=== PATIENT | female | born 1945 | race Caucasian/White ===

== ENCOUNTER 2024-09-10 10:55 | Outpatient (AMB) | payer MEDICARE, SELFPAY ==
--- NOTE | 2024-09-10 11:04 | A.OFFPC_ITS ---
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: No Is last menstrual period known: No Post menopausal: No Patient : No Allergies No Known Allergies Allergy (Verified 09/10/24 11:11) Tobacco use date assessed: 09/10/24 Fall risk assessment: No Falls in past year Last assessed Fall Risk: 09/10/24 Dental Screening Dental Screen Date: 09/10/24 Did you have a dental visit in the last 12 months?: Yes Did you have a dental problem in the last 6 months where you did not have access to dental care?: Yes Was dental information given to patient?: Yes HPI HPI Comments History of Present Illness Details This is a 79-year-old female with a past medical history of cognitive decline, hypothyroidism, breast cancer, hypertension and hypothyroidism presenting to [facility]. She transferred from [facility]. We have not received records. Cognitive decline-memory loss over the past 1-2 years. No longer drives. ADLs not impacted otherwise. They do not feel like this has progressed quickly. Patient was started on benazepril by her last primary care provider. Patient has not seen neuro or had a neuropsych evaluation. When I asked her about sleep she says that she does sleep 6-8 hours nightly, but she snores heavily and she endorses daytime fatigue and somnolence. She is obese with a BMI of 31.6. She has hypertension. Hypertension treated with amlodipine 10 mg daily. Blood pressure 135/66 when I rechecked it. She was anxious to come in for a new appointment. No chest pain, shortness of breath or history of heart attack or stroke. Patient is a nonsmoker. She drinks champagne a couple of nights per week. History of breast cancer-followed by [facility] breast surgery. She has mammograms annually. These were done at [facility]. She had left breast cancer some 15 years ago treated with surgery and radiation. She had right breast cancer 2 years ago which was treated with surgery only. Hypothyroidism treated with levothyroxine 100 mcg daily. Patient is on higher than standard dosages of B12 and vitamin-D. No recent labs. ROS: Constitutional: No unexplained weight loss, fever, chills or night sweats. Eyes: No vision changes, blurry vision, double vision, eye pain, eye redness, eye discharge. ENT: No hearing loss, sneezing, congestion, runny nose or sore throat. Respiratory: No shortness of breath, cough or sputum production. Cardiovascular: No chest pain, chest pressure or chest discomfort. No palpitations or pedal edema. Gastrointestinal: No anorexia, nausea, vomiting or diarrhea. No abdominal pain or blood in stool. Genitourinary: No dysuria, hematuria, urinary frequency. Neurologic: No headache, dizziness, syncope, unilateral weakness, ataxia, numbness or tingling in the extremities.. Hematologic/Lymphatics: No bleeding or bruising. Skin: No rash or itching. Endocrine: No cold or heat intolerance. No polyuria or polydipsia. Psychiatric: No depression or anxiety. No SI/HI. Physical exam: Constitutional: Alert, in no distress. Head: Normocephalic. Eyes: Pupils are equal, round and reactive to light. Extraocular muscles intact. Ear, Nose and Throat: Canals clear. TMs normal. Normal nasal mucosa. No nasal discharge. No oral lesions. Neck: Supple, Full range of motion. No lymphadenopathy. No palpable thyroid masses. Respiratory: Clear to auscultation. Cardiovascular: S1 S2 regular. No murmurs. Neurologic: No focal neurological deficits. Extremities: Warm and well perfused. No clubbing, cyanosis or edema. Trace bilateral lower extremity edema. Psychiatric: Normal mood and affect [facility] Medical History (Updated 09/10/24 @ 17:34 by RAMIRO Aponte) History of breast cancer Cognitive decline Obesity, class 1 Fatigue Snoring Daytime somnolence At risk for nutrition deficiency Essential hypertension History of right breast cancer History of left breast cancer Hypothyroid Surgical History (Updated 09/10/24 @ 17:33 by RAMIRO Aponte) History of lumpectomy of left breast History of lumpectomy of right breast History of left knee replacement Social History Housing: House Patient Tobacco Use Status: Never used Tobacco e-Cigarette/Vaping Use: Never Used Second Hand Smoke Exposure: No service: No Current occupational status: unemployed Current occupational exposures/hazards: No Cognitive needs: No Hearing needs: Yes Vision needs: Yes Questionnaire PHQ-9 Over the last 2 weeks, how often have you been bothered by any of the following problems? 1. Little interest or pleasure in doing things: not at all 2. Feeling down, depressed, or hopeless: not at all 3. Trouble falling or staying asleep, or sleeping too much: not at all 4. Feeling tired or having little energy: not at all 5. Poor appetite or overeating: not at all 6. Feeling bad about yourself - or that you are a failure or have let yourself or your family down: not at all 7. Trouble concentrating on things, such as reading the newspaper or watching television: not at all 8. Moving or speaking so slowly that other people could have noticed. Or the opposite - being so fidgety or restless that you have been moving around a lot more than usual: not at all 9. Thoughts that you would be better off or of hurting yourself in some way: not at all Total score: 0 Depression Screening Interpretation: Negative Depression Screening Done: Yes 57011 - PHQ-9 Billing: Yes Source: Developed by Drs. Craig Brooks, Dorothy Ohara, Chris Lucas and colleagues, with an educational mark from [employer]. Thrive Questionnaire Date Thrive assessed: 09/10/24 I am a: Patient What is your living situation today?: I have a steady place to live Within the past 12 months, did the food you bought not last and you didn't have the money to get more?: Never true Within the past 12 months, did you worry whether your food would run out before you got money to buy more?: Never true Do you have trouble paying for medicines?: No Do you have trouble getting transportation to medical appointments?: No Do you have trouble paying your heating and electricity bill?: No Do you have trouble taking care of your child, family member or friend?: No Do you have trouble with day-to-day activities such as bathing, preparing meals, shopping, managing finances, etc.?: No Are you currently unemployed and looking for a job?: No Are you interested in more education?: No Please select the resources that you would like help with: None Currently or been in a relationship where the following occur: No concerns reported THRIVE Score: 0 AUDIT C Alcohol Use Questionnaire (AUDIT-C) 1. How often do you have a drink containing alcohol?: 4 or more times a week 2. How many drinks containing alcohol do you have on a typical day when you are drinking?: 1 or 2 3. How often do you have six or more drinks on one occasion?: Never Total Score: 4 Score Reviewed/Action Taken: Yes LUIS ENRIQUE-7 AMB Questionnaire LUIS ENRIQUE-7 Date LUIS ENRIQUE - 7 assessed: 09/10/24 Feeling nervous, anxious, or on edge: 0 = Not at all Not being able to stop or control worryin = Not at all Worrying too much about different things: 0 = Not at all Trouble relaxin = Not at all Being so restless that it is hard to sit still: 0 = Not at all Becoming easily annoyed or irritable: 0 = Not at all Feeling afraid as if something awful might happen: 0 = Not at all Total LUIS ENRIQUE-7 score (0-4 normal; 5-9 mild; 10-14 moderate; 15-21 severe): 0 Source: Developed by Drs. Craig Brooks, Dorothy Ohara, Chris Lucas and colleagues, with an educational mark from [employer]. LUIS ENRIQUE-7 Assessment Billing LUIS ENRIQUE-7 Assessment Tool: LUIS ENRIQUE-7 Assessment 83849 Physical exam (Primary Care) Vital Signs: Last Vital Signs Temp 97.6 F 09/10/24 11:20 Pulse 69 09/10/24 11:20 Resp 16 09/10/24 11:20 BP 135/66 09/10/24 11:54 Pulse Ox 99 09/10/24 11:20 Oxygen Delivery Method Room Air 09/10/24 11:20 BMI result Body Mass Index 31.6 Tobacco/Smoking Status: Tobacco use Status Tobacco use date assessed 09/10/24 09/10/24 11:28 Patient Tobacco Use Status Never used Tobacco 09/10/24 11:28 e-Cigarette/Vaping Use Never Used 09/10/24 11:28 PHQ-9: PHQ-9 Score PHQ-9: Total score 0 09/10/24 11:58 Depression Screening Interpretation: Negative Thrive Assessment: Date of Thrive Assessment Date Thrive assessed 09/10/24 09/10/24 11:28 Currently or been in a relationship where the following occur: No concerns reported Coding Level of Care Code New Pt Level 4 (26828) Complex EM visit Add On G2211 Diagnoses History of breast cancer Z85.3 Obesity, class 1 E66.811 Fatigue R53.83 Snoring R06.83 Cognitive decline R41.89 Daytime somnolence R40.0 Essential hypertension I10 Hypothyroid E03.9 Additional Codes LUIS ENRIQUE-7 Assessment Billing - LUIS ENRIQUE-7 Assessment Tool: LUIS ENRIQUE-7 Assessment [id number] ([id number]) PHQ-9 - 40863 - PHQ-9 Billing: Yes ([id number]) Assessment & Plan Assessment & Plan (1) History of breast cancer: Code(s): Z85.3 - Personal history of malignant neoplasm of breast Category: Medical Plan: Patient is followed by the breast surgeon at [facility] and has mammograms done there. (2) Obesity, class 1: Code(s): E66.811 - Obesity, class 1 Category: Medical Plan: Recommended initial management with decreasing carbohydrates and sugars in the diet. Check screening labs. (3) Fatigue: Code(s): R53.83 - Other fatigue Category: Medical Plan: Patient has daytime somnolence, fatigue, snoring, obesity and hypertension. I am concerned she may have undiagnosed sleep apnea and this is also relevant related to her cognitive decline. Ordered home sleep study. (4) Snoring: Code(s): R06.83 - Snoring Category: Medical (5) Cognitive decline: Code(s): R41.89 - Other symptoms and signs involving cognitive functions and awareness Category: Medical Plan: Patient agreeable to blood work and sleep study. Recommended neuroimaging and referral to neuropsych evaluation and Neurology. They declined at this time. They would like to continue on the benazepril current dose for now. Monitoring for worsening symptoms. (6) Daytime somnolence: Code(s): R40.0 - Somnolence Category: Medical (7) Essential hypertension: Code(s): I10 - Essential (primary) hypertension Category: Medical Plan: Continue amlodipine 10 mg daily. Recommended low-sodium diet and avoidance of caffeine. (8) Hypothyroid: Code(s): E03.9 - Hypothyroidism, unspecified Category: Medical Plan: Continue levothyroxine and check TSH. Plan Follow up in 4 months. Orders: Orders Vitamin D 25-OH (D2 and D3) Today E03.9 - Hypothyroidism, unspecified, I10 - Essential (primary) hypertension, M85.80 - Other specified disorders of bone density and structure, unspecified site, Z85.3 - Personal history of malignant neoplasm of breast, Z91.89 - Other specified personal risk factors, not elsewhere classified Vitamin B12 Today E03.9 - Hypothyroidism, unspecified, I10 - Essential (primary) hypertension, Z85.3 - Personal history of malignant neoplasm of breast, Z91.89 - Other specified personal risk factors, not elsewhere classified Comprehensive Met. Panel Today E03.9 - Hypothyroidism, unspecified, I10 - Essential (primary) hypertension, Z85.3 - Personal history of malignant neoplasm of breast, Z91.89 - Other specified personal risk factors, not elsewhere classified Complete Blood Count Auto Diff Today E03.9 - Hypothyroidism, unspecified, I10 - Essential (primary) hypertension, Z85.3 - Personal history of malignant neoplasm of breast, Z91.89 - Other specified personal risk factors, not elsewhere classified TSH reflex Free T4 Today E03.9 - Hypothyroidism, unspecified, I10 - Essential (primary) hypertension, Z85.3 - Personal history of malignant neoplasm of breast, Z91.89 - Other specified personal risk factors, not elsewhere classified Lipid Panel Today E03.9 - Hypothyroidism, unspecified, E78.5 - Hyperlipidemia, unspecified, I10 - Essential (primary) hypertension, Z85.3 - Personal history of malignant neoplasm of breast, Z91.89 - Other specified personal risk factors, not elsewhere classified RT home sleep study Today E66.811 - Obesity, class 1, I10 - Essential (primary) hypertension, R06.83 - Snoring, R40.0 - Somnolence, R41.89 - Other symptoms and signs involving cognitive functions and awareness, R53.83 - Other fatigue
[2024-09-10 11:20] VITALS: BP 157/71; PULSE 69; RESP 16; TEMP 36.4; O2SAT 99; BMI 31.6
[2024-09-10 11:54] VITALS: BP 135/66
== END 2024-09-10 12:28 | disposition home or self-care (01) ==
LOC: HO.HMCFM 10:56
PROVIDERS: PCP Physician Assistant Medical; Visit Provider Physician Assistant Medical
DX: R53.83 Other fatigue (principal); Z85.3 Personal history of malignant neoplasm of breast; E66.811 Obesity, class 1; Z68.31 Body mass index [BMI] 31.0-31.9, adult; R06.83 Snoring; R41.89 Other symptoms and signs involving cognitive functions and awareness; R40.0 Somnolence; I10 Essential (primary) hypertension; E03.9 Hypothyroidism, unspecified

== ENCOUNTER → 2024-09-10 10:55 | Outpatient (BNVA) | payer MEDICARE, SELFPAY | PROVIDERS: PCP Physician Assistant Medical; Visit Provider Physician Assistant Medical | DX: E66.811 Obesity, class 1 (principal); Z68.31 Body mass index [BMI] 31.0-31.9, adult; R53.83 Other fatigue; R06.83 Snoring; R41.89 Other symptoms and signs involving cognitive functions and awareness; R40.0 Somnolence; I10 Essential (primary) hypertension; E03.9 Hypothyroidism, unspecified; Z85.3 Personal history of malignant neoplasm of breast; Z79.899 Other long term (current) drug therapy | CPT/HCPCS: 96127; 99202 ==

== ENCOUNTER 2024-09-11 09:39 | Outpatient (REF) | payer MEDICARE, SELFPAY ==
[2024-09-11 11:17] LABS: MANUAL DIFF FLAG NO
[2024-09-11 11:29] LABS: Basophils Percent Auto 0.3 % (0-2); Eosinophils Absolute Auto 0.1 X10*3/uL (0.0-0.4); Eosinophils Percent Auto 1.4 % (0-4); Hematocrit 41.5 % (37.0-47.0); Hemoglobin 13.8 g/dl (12.0-16.0); Imm Gran Abs Auto 0.01 X10*3/uL (0.00-0.03); Imm Gran Pct Auto 0.3 % (0.0-0.4); Lymphocytes Percent Auto 26.1 % (20-40); Mean Corpuscular HGB Conc 33.3 g/dl (31.0-35.0); Mean Corpuscular Hemoglobin 31.2 pg (27.0-33.0); Mean Corpuscular Volume 93.9 fL (80.0-98.0); Mean Platelet Volume 9.6 fL (9.4-12.3); Monocytes Absolute Auto 0.3 X10*3/uL (0.1-1.2); Monocytes Percent Auto 8.2 % (2-11); Neutrophils Absolute Auto 2.4 x10*3/uL (2.0-8.3); Neutrophils Percent Auto 63.7 % (45-73); Platelet Count 180 X10*3/uL (160-400); Red Blood Count 4.42 X10*6/uL (4.20-5.50); Red Cell Distribution Width 13.1 % (11.0-16.0); White Blood Count 3.7 X10*3/uL (4.8-10.8)
[2024-09-11 11:58] LABS: Alanine Aminotransferase 11 U/L (0-31); Albumin Level 3.8 g/dL (3.5-5.0); Alkaline Phosphatase 53 U/L (39-117); Anion Gap 10 (12-20); Aspartate Amino Transferase 24 U/L (5-31); Bilirubin Total 0.6 mg/dL (0.0-1.0); Blood Urea Nitrogen 13 mg/dL (9-16); Calcium 9.3 mg/dL (8.4-10.2); Carbon Dioxide 26 mmol/L (22-29); Chloride 109 mmol/L (96-108); Cholesterol 194 mg/dL (<200); Estimated Glomerular Filt Rate > 60; Glucose Random 89 mg/dL (60-115); HDL Cholesterol 74 mg/dL (>40); LDL Cholesterol Calculated 109 mg/dL (<100); Potassium 3.9 mmol/L (3.3-5.1); Sodium 141 mmol/L (135-145); TSH reflex Free T4 2.34 uIU/mL (0.32-4.0); Triglycerides 59 mg/dL (<150)
[2024-09-11 12:03] LABS: Vitamin B12 > 2000 pg/mL (200-900)
[2024-09-17 14:43] LABS: Vitamin D 25-OH, D2 <4 ng/mL; Vitamin D 25-OH, D3 87 ng/mL; Vitamin D 25-OH, Total 87 ng/mL (30-100)
== END 2024-09-11 09:40 | disposition home or self-care (01) ==
LOC: HO.WFDLDS 09:39
PROVIDERS: Visit Provider Physician Assistant Medical
DX: E03.9 Hypothyroidism, unspecified (principal); I10 Essential (primary) hypertension; Z91.89 Other specified personal risk factors, not elsewhere classified; Z85.3 Personal history of malignant neoplasm of breast; M85.80 Other specified disorders of bone density and structure, unspecified site; E78.5 Hyperlipidemia, unspecified
CPT/HCPCS: 36415; 80053; 80061; 82306; 82607; 84443; 85025

== ENCOUNTER 2024-11-25 10:56 | Outpatient (AMB) | payer MEDICARE, SELFPAY ==
[2024-11-25 11:09] VITALS: BP 118/62; PULSE 77; RESP 15; TEMP 36.7; O2SAT 99; BMI 31.0
--- NOTE | 2024-11-25 11:09 | AM.OFFWIN_ITS ---
Intake Vital Signs 11/25/24 11:09 Height 5 ft Weight 159 lb BMI 31.0 BP 118/62 Blood Pressure Location Lt brachial Position Sitting Respiration 15 Pulse 77 Pulse Source Pulse Oximeter Temp 98.0 F Temp Source Oral Pulse Oximetry (%) 99 Intake Visit Reasons: EP fall 2wks, bump on back of head, fatigue, dizzy Intake Note: Pt is here today took a fall in her bathroom and has bump on back of head x2wks ago, has fatigue and vertigo: Didn't get checked out Patient Tobacco Use Status: Never used Tobacco Allergies No Known Allergies Allergy (Verified 11/25/24 11:10) HPI HPI Comments History of Present Illness Details History of Present Illness - The patient is a 79-year-old female wi th a past med hx of cognitive decline, br ca, HTN, hypothyroidism presenting with a head injury following a fall. - Approximately three weeks ago, the pat maria luisa fell in her bathroom, hitting the back of her head. There is a possibility of a transient loss of consciousness as she reported fainting to her but is not sure if there was any chest pain, dizziness or other issues. Her states she was eating and drinking normally prior to the episode. - She does not know how long she lost co nsciousness for, nor does her . She is not on a blood thinner. - They did not seek any medical care sin ce the fall and have been using ice on the area but it is not getting better. - Post-fall, she has continued to experi ence pain at the impact site, notable enough to wake her up when sleeping. - She denies any dizziness, fatigue, torres st pain, ear pain, changes in her vision or hearing. - Her denies changes in her walk ing ability or overall personality, he denies any fatigue beyond her baseline. - While at home, she is supervised and l eric with her . Physical Exam General: Cooperative, healthy appearing, comfortable, no acute distress and well developed Orientation: Patient oriented x3 Limitations: No limitations Head: small defect in the skull noted with a small scab left posterior head Ears: Hearing grossly normal bilaterally, wearing hearing aids, TM's normal bilaterally Nose: Normal External nose present Face and sinus: Normal facial exam Eyes: Appearance normal, both eyes and all related structures Neck: Normal visual inspection and Yes full ROM Respiratory: Normal respiratory effort and able to speak in complete sentences. Skin: No rashes or lesions noted Neuro: Patient oriented x3, CN 2-12 intact bilat, normal gait Extremities: Normal to inspection, no ecchymosis noted [facility] Medical History (Updated 11/25/24 @ 11:39 by Michelle Kathleen PA-C) WBC decreased History of breast cancer Cognitive decline Obesity, class 1 Fatigue Snoring Daytime somnolence At risk for nutrition deficiency Essential hypertension History of right breast cancer History of left breast cancer Hypothyroid Surgical History (Updated 09/10/24 @ 17:33 by RAMIRO Aponte) History of lumpectomy of left breast History of lumpectomy of right breast History of left knee replacement Social History Housing: House Patient Tobacco Use Status: Never used Tobacco e-Cigarette/Vaping Use: Never Used Second Hand Smoke Exposure: No service: No Current occupational status: unemployed Current occupational exposures/hazards: No Cognitive needs: No Hearing needs: Yes Vision needs: Yes Review of Systems Const All systems reviewed & are unremarkable except as noted in HPI and below Physical Exam Vital Signs: Last Vital Signs Temp 98.0 F 11/25/24 11:09 Pulse 77 11/25/24 11:09 Resp 15 11/25/24 11:09 BP 118/62 11/25/24 11:09 Pulse Ox 99 11/25/24 11:09 BMI result Body Mass Index 31.0 Assessment & Plan Assessment & Plan (1) Acute head trauma: Code(s): S09.90XA - Unspecified injury of head, initial encounter Qualifiers: Encounter type: initial encounter Qualified Code(s): S09.90XA - Unspecified injury of head, initial encounter Plan: - Referral to [place] emergency department for immediate evaluation and imaging. Her will drive her. - Tigertext to Nahid Amaya PA-C (triage provider) at [facility] with expect. - Further evaluation and management will depend on the outcomes of the provided diagnostics and any changes in clinical presentation. Patient was informed and verbally consented to the use of an ambient scribe for clinic note documentation during this visit. Coding Level of Care Code Est Pt Level 5 (17370) Diagnoses Recent head trauma, initial encounter S09.90XA Encounter type: initial encounter
== END 2024-11-25 11:39 | disposition home or self-care (01) ==
PROVIDERS: PCP Physician Assistant Medical; Visit Provider Physician Assistant
DX: S09.90XA Unspecified injury of head, initial encounter (principal)

== ENCOUNTER → 2024-11-25 10:56 | Outpatient (BNVA) | payer MEDICARE, SELFPAY | PROVIDERS: PCP Physician Assistant Medical; Visit Provider Physician Assistant | DX: S09.90XA Unspecified injury of head, initial encounter (principal) | CPT/HCPCS: 99212 ==

== ENCOUNTER 2024-11-25 13:00 | Emergency (ER) | payer MEDICARE, SELFPAY ==
--- NOTE | ~2024-11-25 | CT_ITS ---
EXAMINATION: CT HEAD WITHOUT CONTRAST CLINICAL INFORMATION: Fall, posterior head strike. COMPARISON: None available. TECHNIQUE: Contiguous axial imaging was performed from the skull base to vertex without intravenous administration of contrast. This CT examination was performed using dose optimization techniques as appropriate, variously including the following: *Automated exposure control *Adjustment of mA and/or kV according to patient size (this includes techniques or standardized protocols for targeted exams where dose is matched to indication/reason for exam; i.e. extremities or head) *Use of iterative reconstruction technique DLP: 923 mGy/cm. FINDINGS: There is no acute intra-axial, extra-axial bleed, masses or midline shift. There is no acute infarction in evolution. There is no edema. The lateral ventricles are symmetrical in size and configuration but enlarged. The wells to white matter differentiation is maintained. Bone windows reveal no calvarial abnormality paranasal sinuses and mastoid air cells are well-aerated. Scalp soft tissues are normal. CT/CT head/brain wo IV con IMPRESSION: No acute intracranial process seen. Electronically signed by: Jl Souza MD 11/25/2024 03:26 PM EDT
--- NOTE | ~2024-11-25 | CT_ITS ---
EXAMINATION: CT CERVICAL SPINE WITHOUT CONTRAST CLINICAL INFORMATION: Fall, posterior head strike. COMPARISON: None available. TECHNIQUE: 3 mm thin axial and reformatted 2 mm thin sagittal and coronal images of brain were obtained. This CT examination was performed using dose optimization techniques as appropriate, variously including the following: *Automated exposure control *Adjustment of mA and/or kV according to patient size (this includes techniques or standardized protocols for targeted exams where dose is matched to indication/reason for exam; i.e. extremities or head) *Use of iterative reconstruction technique DLP: 923 mGy/cm. FINDINGS: On sagittal reconstructed images there is mild straightening of cervical lordosis. The vertebral heights and alignment is normal. There is loss of C3-C4, C4-5, C5-6, C6 testis 7 and C7-T1 disc heights with mild ventral and posterior spondylosis. There is no visible acute fracture, dislocation or subluxation seen. The prevertebral and paravertebral soft tissues are normal. There is mild bilateral narrowing of neural foramina at C3-4, C4-5 disc levels from uncovertebral hypertrophic changes. The neural foramina are widely patent. The spinal canal is patent. The craniovertebral junction and the C1-C2 alignment is normal. 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 CT/CT cervical spine wo IV con IMPRESSION: Mild straightening of cervical lordosis with multilevel degenerative disc changes with ventral and posterior spondylosis. There is no visible acute fracture or dislocation seen. Incidental finding of a right C7 rib. Fleischner guidelines were followed. Electronically signed by: Jl Souza MD 11/25/2024 03:32 PM EDT
[2024-11-25 13:14] VITALS: PULSE 59; RESP 16; TEMP 36.6; O2SAT 100; BMI 31.0
--- NOTE | 2024-11-25 13:17 | ED_ITS ---
HPI - General Adult General Chief complaint: Fall Stated complaint: Head Pain S/P Fall 2 Wks Ago Time Seen by Provider: 11/25/24 14:15 Source: patient and family (Patient's ) Mode of arrival: ambulatory Limitations: no limitations History of Present Illness ED Provider: Tyesha Trevino PA-C HPI narrative: Patient is a 79 year old assigned female at with a history of HTN presenting to the emergency department today with a continued headache. Patient states that 2 weeks ago she had an episode where she passed out and fell . Patient states that she hit her head during that time. Patient states that she continues to have a posterior headache and the urgent care recommended she be seen in the ER for it. Patient denies any dizziness, lightheadedness, abdominal pain, nausea, vomiting, fever, chills, blurry vision, double vision, loss of vision, chest pain, difficulty breathing, shortness of breath, back pain, night sweats, pain with urination, increased urinary frequency, increased urinary urgency, blood in her urine or stool, bowel incontinence, bladder incontinence, or any other complaints at this time. Onset (ago): week(s) (2) Location: head Relieving factors: none Exacerbating factors: none Associated symptoms: denies other symptoms Treatments prior to arrival: none Related Data Home Medications ?Medication ?Instructions ?Recorded ?Confirmed amlodipine 10 mg tablet mg PO DAILY 09/10/24 donepezil 5 mg tablet mg PO DAILY 09/10/24 loratadine 10 mg tablet 10 mg PO DAILY 09/10/24 (Allerclear) [id number] 8 mg-folic 400 1 tab PO DAILY 09/10/24 mcg-K 50 mcg-lutein 300 mcg tablet (Centrum Silver Women) Previous Rx's ?Medication ?Instructions ?Recorded cholecalciferol (vitamin D3) 25 25 mcg PO DAILY #90 caps 09/18/24 mcg (1,000 unit) capsule cyanocobalamin (vitamin B-12) 500 500 mcg PO DAILY #90 tabs 09/18/24 mcg tablet levothyroxine 75 mcg tablet 75 mcg PO QAM #90 tabs 11/17/24 Allergies Allergy/AdvReac Type Severity Reaction Status Date / Time No Known Allergies Allergy Verified 11/25/24 13:14 Review of Systems 2 Constitutional: Constitutional: Reports no additional constitutional complaints, Denies chills, Denies fever(s), Reports headache(s) and Denies night sweats Eyes: Eyes: Reports no additional eye complaints, Denies blurry vision, Denies change in vision, Denies diplopia, Denies eye discharge, Denies loss of vision and Denies eye pain ENT: Denies dizziness and Reports headache(s) Cardiovascular: Cardiovascular: Reports no additional cardiovascular complaints, Denies chest pain, Denies lightheadedness, Denies Loss of Consciousness and Denies dyspnea Respiratory: Respiratory: Reports no additional respiratory complaints and Denies dyspnea Gastrointestinal: Gastrointestinal: Reports no additional gastrointestinal complaints, Denies abdominal pain, Denies melena, Denies hematochezia, Denies change in bowel habits and Denies change in stool character Genitourinary: Genitourinary: Denies hematuria, Denies urinary frequency, Denies dysuria, Denies urinary incontinence, Denies urinary hesitancy and Denies urinary urgency Musculoskeletal: Musculoskeletal: Reports no additional musculoskeletal complaints, Denies numbness and Denies tingling Neurologic: Denies dizziness, Reports headache(s), Denies loss of vision, Denies numbness and Denies tingling Psychiatric: Psychiatric: Reports no additional psychiatric complaints Endocrine: Endocrine: Reports no additional endocrine complaints Hematologic/Lymphatic: Hematologic/Lymphatic: Reports no additional hematologic/lymphatic complaints Allergic/Immunologic: Allergic/Immunologic: Reports no additional allergic/immunologic complaints PMFSH Past Medical History Attestation statement: The following information was validated with the patient. (All information validated with the patient's ) Source: old records reviewed, obtained from family (Patient's provided additional history and confirmed the history provided by the patient. ) and nursing notes reviewed Medical History WBC decreased History of breast cancer Cognitive decline Obesity, class 1 Fatigue Snoring Daytime somnolence At risk for nutrition deficiency Essential hypertension History of right breast cancer History of left breast cancer Hypothyroid Surgical History History of lumpectomy of left breast History of lumpectomy of right breast History of left knee replacement Social History Social History Housing: House Patient Tobacco Use Status: Never used Tobacco e-Cigarette/Vaping Use: Never Used Second Hand Smoke Exposure: No Advance Directives: No Advance Directives Information Provided: Yes service: No Current occupational status: unemployed Current occupational exposures/hazards: No Cognitive needs: No Hearing needs: Yes Vision needs: Yes Physical Exam ED Vital Signs: Vital Signs - 24 hr 11/25/24 13:14 11/25/24 15:54 Temperature 97.9 F 97.9 F Pulse Rate 59 59 Respiratory Rate 16 16 Blood Pressure 00/0 L Pulse Oximetry 100 100 Oxygen Delivery Method Room Air Room Air BMI result Body Mass Index 31.0 Const General: cooperative, no acute distress, alert and awake Nutritional Appearance: well nourished Orientation/consciousness: patient oriented x3 HENMT Other: Left posterior scalp hematoma felt Ears: hearing grossly normal bilaterally and external ears normal General nose exam: Normal external nose present, no nasal discharge noted and no epistaxis Face and sinus: Yes normal facial exam, No abrasion and No laceration Mouth: Normal oral and palatal mucosa present, no drooling and no muffled voice Eyes General: appearance normal, both eyes and all related structures Periorbital: periorbital findings normal Eyelids: Yes eyelids normal Conjunctivae: conjunctivae normal Pupils: Equal, round and reactive pupils present EOM: EOMs intact bilaterally Neck Neck: Yes normal visual inspection, Yes full ROM and Yes no lymphadenopathy Resp Effort & Inspection: normal respiratory effort and able to speak in complete sentences Neuro General: patient oriented x3, moves all extremities and CN's II-XI intact bilaterally Cranial nerves: Yes Equal, round and reactive pupils present Cognition (Neuro): normal cognition Extrem General: Yes normal to inspection, Yes full ROM and Yes capillary refill normal Psych Appearance: grossly normal Mental Status: mental status grossly normal Affect: normal affect Attitude: cooperative Thought process: Normal thought process present Thought content: Normal thought content present Insight: Good insight present (Psych) Course Course Course Narrative: 11/25/24 1317 RAMIRO Bhandari This is a Rapid Medical Examination (RME) performed by Austin Amaya PA-C in triage. Full HPI, ROS, assessment and treatment plan per primary provider in the Main ED. Hx: 79 yo F here for eval s/p fall 2 wks ago. reports syncopal episode causing her to fall w/ posterior head strike. no thinners. intermittent pain to back of head. seen at today, sent here. she was not evaluated directly after fall. no other symptoms at present. no chest pain PE/vitals: small bump to left occiput in area of discomfort. no palpable skull fracture or step off. Plan: labs, ekg, ct head/ c spine Medical Decision Making Medical Decision Making [facility] Narrative: Patient is a 79 year old assigned female at with a history of HTN presenting to the emergency department today with a continued headache. Patient's physical exam was as noted in the physical exam portion of this note. Patient's blood work was unremarkable. Patient's EKG was unremarkable. Patient's CT of the c-spine showed no acute process. Patient's head CT showed evidence of a left posterior scalp hematoma but no intracranial process. I explained my physical exam findings as well as all test results to the patient and the patient's . I answered all questions asked by the patient and the patient's . I stressed the importance of the patient taking her medication as directed (either prescribed or as the over the counter packaging recommends). I stressed the importance of the patient following up with her primary care provider. I stressed the importance of the patient returning to the emergency department immediately if her symptoms were to worsen or if she were to develop any dizziness, shortness of breath, difficulty breathing, chest pain, blurry vision, loss of vision, nausea, vomiting, abdominal pain, fever, chills, back pain, or any other complaints. Patient and the patient's verbalized agreement and understanding with this treatment plan and discharge. Differential Diagnosis Differential Diagnoses: The differential diagnosis associated with the presentation includes Scalp hematoma Fall Admission/Observation Consideration of admission/observation: Escalation of care including admission/observation considered Patient would have been admitted to the hospital had her work up had any findings where hospital admission was appropriate and her clinical presentation warranted hospital admission. Lab Data [facility] Lab Attestation statement: I reviewed the patient's lab results. My interpretation of these studies and their corresponding values is that they are grossly normal. 11/25/24 13:54 11/25/24 13:54 Labs: Lab Results 11/25/24 Range/Units 13:54 WBC 4.3 L (4.8-10.8) X10*3/uL RBC 4.15 L (4.20-5.50) X10*6/uL Hgb 13.3 (12.0-16.0) g/dl Hct 38.6 (37.0-47.0) % MCV 93.0 (80.0-98.0) fL MCH 32.0 (27.0-33.0) pg MCHC 34.5 (31.0-35.0) g/dl RDW 13.2 (11.0-16.0) % Plt Count 158 L (160-400) X10*3/uL MPV 9.5 (9.4-12.3) fL Immature Gran % (Auto) 0.5 H (0.0-0.4) % Neut % (Auto) 68.6 (45-73) % Lymph % (Auto) 21.1 (20-40) % [place] % (Auto) 8.9 (2-11) % Eos % (Auto) 0.7 (0-4) % Baso % (Auto) 0.2 (0-2) % Lymph # (Auto) 0.9 L (1.2-4.9) X10*3/uL [place] # (Auto) 0.4 (0.1-1.2) X10*3/uL Eos # (Auto) 0.0 (0.0-0.4) X10*3/uL Baso # (Auto) 0.0 (0.0-0.2) X10*3/uL Abs Immat Gran (auto) 0.02 (0.00-0.03) X10*3/uL Absolute Neuts (auto) 2.9 (2.0-8.3) x10*3/uL Absolute Nucleated RBC 0.000 (0.0-0.012) X10*3/uL Nucleated RBC % (auto) 0.0 (0.0-0.2) /100WBC Sodium 140 (135-145) mmol/L Potassium 3.7 (3.3-5.1) mmol/L Chloride 107 (96-108) mmol/L Carbon Dioxide 26 (22-29) mmol/L Anion Gap 11 L (12-20) BUN 11 (9-16) mg/dL Creatinine 0.97 (0.5-1.4) mg/dL Estim Creat Clear Calc 43.0 Estimated GFR 56 Random Glucose 89 (60-115) mg/dL Calcium 9.1 (8.4-10.2) mg/dL Magnesium 1.9 (1.6-2.6) mg/dL Total Bilirubin 0.6 (0.0-1.0) mg/dL AST 20 (5-31) U/L ALT 7 (0-31) U/L Alkaline Phosphatase 49 (39-117) U/L Total Protein 6.2 L (6.5-8.0) g/dL Albumin 3.7 (3.5-5.0) g/dL Independent Interpretation I performed an independent interpretation of an: CT Scan Interpretation: My interpretation is that there is a posterior left scalp hematoma with no intracranial process and a normal CT c-spine. Below is the radiologist's impression of these imaging studies. L Report Number: [id number]: Total DLP = 308.00 mGy-cm EXAMINATION: CT CERVICAL SPINE WITHOUT CONTRAST CLINICAL INFORMATION: Fall, posterior head strike. COMPARISON: None available. TECHNIQUE: 3 mm thin axial and reformatted 2 mm thin sagittal and coronal images of brain were obtained. This CT examination was performed using dose optimization techniques as appropriate, variously including the following: *Automated exposure control *Adjustment of mA and/or kV according to patient size (this includes techniques or standardized protocols for targeted exams where dose is matched to indication/reason for exam; i.e. extremities or head) *Use of iterative reconstruction technique DLP: 923 mGy/cm. FINDINGS: On sagittal reconstructed images there is mild straightening of cervical lordosis. The vertebral heights and alignment is normal. There is loss of C3-C4, C4-5, C5-6, C6 testis 7 and C7-T1 disc heights with mild ventral and posterior spondylosis. There is no visible acute fracture, dislocation or subluxation seen. The prevertebral and paravertebral soft tissues are normal. There is mild bilateral narrowing of neural foramina at C3-4, C4-5 disc levels from uncovertebral hypertrophic changes. The neural foramina are widely patent. The spinal canal is patent. The craniovertebral junction and the C1-C2 alignment is normal. 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 CT/CT cervical spine wo IV con IMPRESSION: Mild straightening of cervical lordosis with multilevel degenerative disc changes with ventral and posterior spondylosis. There is no visible acute fracture or dislocation seen. Incidental finding of a right C7 rib. Fleischner guidelines were followed. Electronically signed by: Jl Souza MD 11/25/2024 03:32 PM EDT RP Dictated By: Jl Souza MD Signed By: Electronically signed by Jl Souza MD 11/25/24 1532 Report Number: [id number]: Total DLP = 613.00 mGy-cm EXAMINATION: CT HEAD WITHOUT CONTRAST CLINICAL INFORMATION: Fall, posterior head strike. COMPARISON: None available. TECHNIQUE: Contiguous axial imaging was performed from the skull base to vertex without intravenous administration of contrast. This CT examination was performed using dose optimization techniques as appropriate, variously including the following: *Automated exposure control *Adjustment of mA and/or kV according to patient size (this includes techniques or standardized protocols for targeted exams where dose is matched to indication/reason for exam; i.e. extremities or head) *Use of iterative reconstruction technique DLP: 923 mGy/cm. FINDINGS: There is no acute intra-axial, extra-axial bleed, masses or midline shift. There is no acute infarction in evolution. There is no edema. The lateral ventricles are symmetrical in size and configuration but enlarged. The wells to white matter differentiation is maintained. Bone windows reveal no calvarial abnormality paranasal sinuses and mastoid air cells are well-aerated. Scalp soft tissues are normal. CT/CT head/brain wo IV con IMPRESSION: No acute intracranial process seen. Electronically signed by: Jl Souza MD 11/25/2024 03:26 PM EDT Dictated By: Jl Souza MD Signed By: Electronically signed by Jl Souza MD 11/25/24 1526 I independently interpreted this EKG and am in agreement with the below findings: Vent. Rate: 57 BPM Atrial Rate: 57 BPM P-R Int: 174 ms QRS Dur: 80 ms QT Int: 456 ms P-R-T Axes: 0 1 42 degrees QTcB Int: 443 ms Sinus bradycardia with sinus arrhythmia No previous ECGs available DD/ 1346 Radiology Impression Discussion of test interpretation with radiology: I have reviewed the radiologist's reading. Independent Historian Clinical information obtained from an independent historian. History obtained from or confirmed by: Spouse (Patient's provided additional history and confirmed the history provided by the patient.) Discharge Plan Discharge Clinical Impression: Hematoma of parietal scalp Patient Disposition: Home, Self-Care Instructions: Scalp Contusion in Adults (ED) Additional Instructions: Continue icing the area. Sleep at a 45 degree angle to help with swelling. Follow up with your primary care provider. Return to the emergency department immediately if your symptoms worsen or if you develop any numbness, tingling, dizziness, shortness of breath, difficulty breathing, chest pain, blurry vision, loss of vision, nausea, vomiting, abdominal pain, fever, chills, back pain, or any other complaints. Please see the information below about our Patient Portal. If you are not yet enrolled in the [facility] Patient Portal, you will receive an enrollment email invitation following your visit to any [facility] care setting. You may also self-enroll in the Patient Portal by visiting our website: [email or web address] The following information is required to access the Patient Portal: - Your [facility] Medical Record Number - Your personal home email address (must match what is in your electronic medical record, Registration staff can assist with this) - Name - Date of Capabilities of the Patient Portal: - Message some providers - View upcoming appointments - Access your health summary, medical history, and visit history - View current conditions and allergies - View procedure and lab results - View your medications, including guidelines, side effects, and precautions - Complete pre-appointment questionnaires requested by your provider - Ready summary reports of your office visits and procedures To access the Patient Portal Mobile [employer], follow these directions: - Search [employer] in the [employer] Store or [employer] Store - Download the [employer]ison - Search for [facility] - Enter your login/password Prescriptions: No Action cyanocobalamin (vitamin B-12) 500 mcg tablet 500 mcg PO DAILY Qty: 90 1RF cholecalciferol (vitamin D3) 25 mcg (1,000 unit) capsule 25 mcg PO DAILY Qty: 90 1RF levothyroxine 75 mcg tablet 75 mcg PO QAM Qty: 90 3RF amlodipine 10 mg tablet PO DAILY loratadine [Allerclear] 10 mg tablet 10 mg PO DAILY donepezil 5 mg tablet PO DAILY Centrum Silver Women 8 mg iron-400 mcg-50 mcg tablet 1 tab PO DAILY Referrals: Grace Person PA [Primary Care Provider] - Interventions: ED Discharge Assessment Last Done: 11/25/24 15:54 Discharge Date/Time: 11/25/24 15:55 Print Language: Kazakh
--- NOTE | 2024-11-25 13:19 | ECG_ITS ---
Test Reason : SYNCOPE Blood Pressure : */* mmHG Vent. Rate : 57 BPM Atrial Rate : 57 BPM P-R Int : 174 ms QRS Dur : 80 ms QT Int : 456 ms P-R-T Axes : 0 1 42 degrees QTcB Int : 443 ms Sinus bradycardia with sinus arrhythmia Otherwise normal ECG No previous ECGs available Referred By: Shaista Amaya Electronically Signed By: REGGIE PERALES
[2024-11-25 13:59] LABS: MANUAL DIFF FLAG NO
[2024-11-25 14:00] LABS: Basophils Percent Auto 0.2 % (0-2); Eosinophils Percent Auto 0.7 % (0-4); Hematocrit 38.6 % (37.0-47.0); Hemoglobin 13.3 g/dl (12.0-16.0); Imm Gran Abs Auto 0.02 X10*3/uL (0.00-0.03); Imm Gran Pct Auto 0.5 % (0.0-0.4); Lymphocytes Absolute Auto 0.9 X10*3/uL (1.2-4.9); Lymphocytes Percent Auto 21.1 % (20-40); Mean Corpuscular HGB Conc 34.5 g/dl (31.0-35.0); Mean Platelet Volume 9.5 fL (9.4-12.3); Monocytes Absolute Auto 0.4 X10*3/uL (0.1-1.2); Monocytes Percent Auto 8.9 % (2-11); Neutrophils Absolute Auto 2.9 x10*3/uL (2.0-8.3); Neutrophils Percent Auto 68.6 % (45-73); Platelet Count 158 X10*3/uL (160-400); Red Blood Count 4.15 X10*6/uL (4.20-5.50); Red Cell Distribution Width 13.2 % (11.0-16.0); White Blood Count 4.3 X10*3/uL (4.8-10.8)
[2024-11-25 14:13] LABS: Alanine Aminotransferase 7 U/L (0-31); Albumin Level 3.7 g/dL (3.5-5.0); Alkaline Phosphatase 49 U/L (39-117); Anion Gap 11 (12-20); Aspartate Amino Transferase 20 U/L (5-31); Bilirubin Total 0.6 mg/dL (0.0-1.0); Blood Urea Nitrogen 11 mg/dL (9-16); Calcium 9.1 mg/dL (8.4-10.2); Carbon Dioxide 26 mmol/L (22-29); Chloride 107 mmol/L (96-108); Estimated Glomerular Filt Rate 56; Glucose Random 89 mg/dL (60-115); Magnesium 1.9 mg/dL (1.6-2.6); Potassium 3.7 mmol/L (3.3-5.1); Sodium 140 mmol/L (135-145); Total Protein 6.2 g/dL (6.5-8.0)
[2024-11-25 15:54] VITALS: BP 00/0; PULSE 59; RESP 16; TEMP 36.6; O2SAT 100
== END 2024-11-25 15:55 | disposition home or self-care (01) ==
PROVIDERS: Physician Assistant Medical; Emergency Provider Emergency Medicine; PCP Physician Assistant Medical
DX: S00.03XA Contusion of scalp, initial encounter (principal); W19.XXXA Unspecified fall, initial encounter; Y93.9 Activity, unspecified; Y92.9 Unspecified place or not applicable; Y99.9 Unspecified external cause status; R51.9 Headache, unspecified; I10 Essential (primary) hypertension
CPT/HCPCS: 36415; 70450; 72125; 80053; 83735; 85025; 93005; 99283; 99284

== ENCOUNTER → 2024-11-25 13:19 | Outpatient (BNV) | payer MEDICARE, SELFPAY | PROVIDERS: Emergency Provider Emergency Medicine; PCP Physician Assistant Medical; Visit Provider Radiology Diagnostic Radiology | DX: S09.90XA Unspecified injury of head, initial encounter (principal); W19.XXXA Unspecified fall, initial encounter | CPT/HCPCS: 70450; 72125 ==

== ENCOUNTER → 2024-11-25 13:19 | Outpatient (BNV) | payer MEDICARE, SELFPAY | PROVIDERS: Emergency Provider Emergency Medicine; PCP Physician Assistant Medical; Visit Provider Internal Medicine | DX: R55 Syncope and collapse (principal) | CPT/HCPCS: 93010 ==

== ENCOUNTER 2024-11-30 09:31 | Outpatient (AMB) | payer MEDICARE, SELFPAY ==
--- NOTE | 2024-11-30 09:33 | MHC.OFFVIS ---
Vital Signs 11/30/24 09:39 Height 5 ft Weight 158 lb BMI 30.9 BP 140/72 H Blood Pressure Location Lt brachial Position Sitting Respiration 16 Pulse 59 Pulse Source Pulse Oximeter Temp 97.9 F Temp Source Temporal Artery Scan Pulse Oximetry (%) 99 Oxygen Delivery Method Room Air Intake Visit Reasons: [facility] [place] er/ bruise on the head/fall Intake Note: Yusra Shah presents in the office today to follow up from hitting her head. Allergies No Known Allergies Allergy (Verified 11/30/24 09:37) HPI Comments Details: This is a 79-year-old female with a past medical history of cognitive decline, hypothyroidism, breast cancer, hypertension and hypothyroidism presenting for ER follow up. She is accompanied by her and her son, Eduardo. Patient seen at the ED on 11/25/2024. She reported falling in her bathroom a couple of weeks ago. Patient said she turned and lost her footing and may have lost consciousness after hitting the floor briefly. states it could not have been long because she got up and came looking for him to let him know that she fell right after. She was applying ice at home which helped, but then headache worsened so he took her to the emergency department for evaluation of posterior headache. ED workup included labs demonstrating red blood cell count mildly decreased at 4.15 and mild leukopenia with white blood cell count 4.3, mild thrombocytopenia with platelet count 158,000, creatinine 0.97, GFR 56 Normal hepatic function. EKG demonstrated sinus bradycardia with sinus arrhythmia and ventricular rate of [address] of the cervical spine without contrast showed straightening of the cervical lordosis and multilevel degenerative disc disease but no fracture or dislocation. Head CT without contrast demonstrated no acute intracranial process. Diagnosed with scalp hematoma. They report this is her 1st fall, but she is unsteady on her feet chronically. Reports this scalp is still a little tender, but it is better. She does not have any further headache. No dizziness, double vision or change of vision, dizziness. She has cognitive decline which we previously discussed-memory loss over the past 1-2 years. No longer drives. ADLs not impacted otherwise. They do not feel like this has progressed quickly. Patient was started on Donazepil by her last primary care provider. They continue to decline neuro eval or further evaluation.. Hypertension treated with amlodipine 10 mg daily, but she has been out of the medicine. Patient is a nonsmoker. She drinks champagne a couple of nights per week. History of breast cancer-followed by [facility] breast surgery. She has mammograms annually. She had left breast cancer some 15 years ago treated with surgery and radiation. She had right breast cancer 2 years ago which was treated surgically. Hypothyroidism treated with levothyroxine 100 mcg daily. We discussed fatigue previously, and sleep study was ordered. She has a nonhealing skin lesion on the center of her chest for the past few months. It forms a scab and she picks at it. She applied antibiotic ointment. ROS: Constitutional: No unexplained weight loss, fever, chills or night sweats. Eyes: No vision changes, blurry vision, double vision, eye pain, eye redness, eye discharge. ENT: No hearing loss, sneezing, congestion, runny nose or sore throat. Respiratory: No shortness of breath, cough or sputum production. Cardiovascular: No chest pain, chest pressure or chest discomfort. No palpitations or pedal edema. Gastrointestinal: No anorexia, nausea, vomiting or diarrhea. No abdominal pain or blood in stool. Genitourinary: No dysuria, hematuria, urinary frequency. Neurologic: No headache, dizziness, syncope, unilateral weakness, ataxia, numbness or tingling in the extremities.. Hematologic/Lymphatics: No bleeding or bruising. Skin: See HPI Endocrine: No cold or heat intolerance. No polyuria or polydipsia. Psychiatric: No depression or anxiety. No SI/HI. Physical exam: Constitutional: Alert, in no distress. Head: Normocephalic. 2 cm firm mildly tender area on the left posterior scalp consistent with hematoma. There is a small scab at the center. Eyes: Pupils are equal, round and reactive to light. Extraocular muscles intact. Ear, Nose and Throat: Canals clear. TMs normal. Normal nasal mucosa. No nasal discharge. No oral lesions. Neck: Supple, Full range of motion. No lymphadenopathy. No palpable thyroid masses. Respiratory: Clear to auscultation. Cardiovascular: S1 S2 regular. No murmurs. Neurologic:?Alert and oriented x 3, no focal deficits observed, CN 2-12 intact, [id number] normal, sensation equal and symmetric, strength UE and LE 5/5 bilaterally, reflexes equal and symmetric.? Her gait is a bit unsteady. She is not able to heel-toe walk or walk on her toes or heels.? No pronator drift.? Negative Romberg. Extremities: Warm and well perfused. No clubbing, cyanosis or edema. Trace bilateral lower extremity edema. Psychiatric: Normal mood and affect Skin: 3 mm raised , rough, asymmetric lesion on the center of the chest with erythematous base [facility] Medical History (Updated 12/01/24 @ 14:58 by RAMIRO Aponte) Unsteady gait Risk for falls Abnormal CBC Skin neoplasm Fall Skin lesion WBC decreased History of breast cancer Cognitive decline Obesity, class 1 Fatigue Snoring Daytime somnolence At risk for nutrition deficiency Essential hypertension History of right breast cancer History of left breast cancer Hypothyroid Surgical History History of lumpectomy of left breast History of lumpectomy of right breast History of left knee replacement Social History Housing: House Patient Tobacco Use Status: Never used Tobacco e-Cigarette/Vaping Use: Never Used Second Hand Smoke Exposure: No service: No Current occupational status: unemployed Current occupational exposures/hazards: No Cognitive needs: No Hearing needs: Yes Vision needs: Yes Physical Exam Vital Signs: Last Vital Signs Temp 97.9 F 11/30/24 09:39 Pulse 59 11/30/24 09:39 Resp 16 11/30/24 09:39 BP 140/72 H 11/30/24 09:39 Pulse Ox 99 11/30/24 09:39 Oxygen Delivery Method Room Air 11/30/24 09:39 BMI result Body Mass Index 30.9 Assessment & Plan Assessment & Plan (1) Skin lesion: Code(s): L98.9 - Disorder of the skin and subcutaneous tissue, unspecified Category: Medical Plan: Refer to dermatology for evaluation. (2) Fall: Code(s): W19.XXXA - Unspecified fall, initial encounter Category: Medical Plan: Fall prevention reviewed. Referred to physical therapy for gait unsteadiness and fall risk. ER records reviewed. (3) History of breast cancer: Code(s): Z85.3 - Personal history of malignant neoplasm of breast Category: Medical Plan: Patient is followed by the breast surgeon at [facility] and has mammograms done there. (4) Fatigue: Code(s): R53.83 - Other fatigue Category: Medical Plan: Patient has daytime somnolence, fatigue, snoring, obesity and hypertension. I am concerned she may have undiagnosed sleep apnea and this is also relevant related to her cognitive decline. A home sleep study has been ordered. (5) Cognitive decline: Code(s): R41.89 - Other symptoms and signs involving cognitive functions and awareness Category: Medical Plan: Recommended neuroimaging and referral to neuropsych evaluation and Neurology. They declined at this time. They would like to continue on the donazepil. current dose for now. Monitoring for worsening symptoms. (6) Essential hypertension: Code(s): I10 - Essential (primary) hypertension Category: Medical Plan: Restart amlodipine 10 mg daily. Recommended low-sodium diet and avoidance of caffeine. (7) Hypothyroid: Code(s): E03.9 - Hypothyroidism, unspecified Category: Medical Plan: Continue levothyroxine (8) Abnormal CBC: Code(s): R79.89 - Other specified abnormal findings of blood chemistry Category: Medical Plan: Check CBC, iron, ferritin, B12 and folate in 4 weeks. Plan Follow up in 6 weeks. Orders: Orders Vitamin B12 and Folate Today D64.9 - Anemia, unspecified, R79.89 - Other specified abnormal findings of blood chemistry Ferritin Today D64.9 - Anemia, unspecified, R79.89 - Other specified abnormal findings of blood chemistry IRON PROFILE Today D64.9 - Anemia, unspecified, R79.89 - Other specified abnormal findings of blood chemistry PT Evaluation and Treatment Today R26.81 - Unsteadiness on feet, Z91.81 - History of falling Pathologist Review - CBC Today R79.89 - Other specified abnormal findings of blood chemistry Referrals Dermatology Referral D49.2 - Neoplasm of unspecified behavior of bone, soft tissue, and skin Coding Level of Care Code Est Pt Level 4 (63273) Complex EM visit Add On G2211 Diagnoses Skin lesion L98.9 Fall W19.XXXA History of breast cancer Z85.3 Fatigue R53.83 Cognitive decline R41.89 Essential hypertension I10 Hypothyroid E03.9 Abnormal CBC R79.89
[2024-11-30 09:39] VITALS: BP 140/72; PULSE 59; RESP 16; TEMP 36.6; O2SAT 99; BMI 30.9
== END 2024-11-30 09:45 | disposition home or self-care (01) ==
LOC: HO.HMCFM 09:32
PROVIDERS: PCP Physician Assistant Medical; Visit Provider Physician Assistant Medical
DX: L98.9 Disorder of the skin and subcutaneous tissue, unspecified (principal); W19.XXXA Unspecified fall, initial encounter; Z85.3 Personal history of malignant neoplasm of breast; R53.83 Other fatigue; R41.89 Other symptoms and signs involving cognitive functions and awareness; I10 Essential (primary) hypertension; E03.9 Hypothyroidism, unspecified; R79.89 Other specified abnormal findings of blood chemistry

== ENCOUNTER → 2024-11-30 09:31 | Outpatient (BNVA) | payer MEDICARE, SELFPAY | PROVIDERS: PCP Physician Assistant Medical; Visit Provider Physician Assistant Medical | DX: L98.9 Disorder of the skin and subcutaneous tissue, unspecified (principal); R53.83 Other fatigue; R41.89 Other symptoms and signs involving cognitive functions and awareness; I10 Essential (primary) hypertension; E03.9 Hypothyroidism, unspecified; R79.89 Other specified abnormal findings of blood chemistry; Z85.3 Personal history of malignant neoplasm of breast; Z79.899 Other long term (current) drug therapy; Z91.81 History of falling | CPT/HCPCS: 99212 ==

== ENCOUNTER 2025-01-04 10:09 | Outpatient (AMB) | payer MEDICARE, SELFPAY ==
--- NOTE | 2025-01-04 10:14 | A.OFFPC_ITS ---
Vital Signs 01/04/25 10:18 Height 5 ft Weight 160 lb BMI 31.2 BP 116/68 Blood Pressure Location Rt brachial Position Sitting Respiration 16 Pulse 65 Pulse Source Pulse Oximeter Temp 98.6 F Temp Source Temporal Artery Scan Pulse Oximetry (%) 96 Oxygen Delivery Method Room Air Intake Visit Reasons: med follow up Intake Note: Yusra Shah presents in the office today for a medication review. Patients concerned as she is sleeping longer 9pm to 9am and feels during the day. Allergies No Known Allergies Allergy (Verified 01/04/25 10:16) Tobacco use date assessed: 01/04/25 Dental Screening Dental Screen Date: 01/04/25 Did you have a dental visit in the last 12 months?: Yes Did you have a dental problem in the last 6 months where you did not have access to dental care?: No Was dental information given to patient?: Patient has dentist HPI HPI Comments History of Present Illness Details This is a 79-year-old female with a past medical history of cognitive decline, hypothyroidism, breast cancer, hypertension and hypothyroidism presenting for follow up. She is accompanied by her . This appointment was scheduled to review blood work, but she did not have it completed yet. She was seen in the emergency department on 11/25/2024 after a fall. ED workup included labs demonstrating red blood cell count 4.15 and mild leukopenia with white blood cell count of 4.3, mild thrombocytopenia with platelet count 158,000, creatinine 0.97, GFR 56. Normal hepatic function. Her says he started her on iron pills a week ago and she is taking 500 mcg of vitamin B12 daily. I recommended physical therapy for gait strengthening and fall prevention, but she continues to decline it at this time. They have a cane at home though she does not use this. She has cognitive decline which we previously discussed-memory loss over the past 1-2 years. No longer drives. ADLs not impacted otherwise. They do not feel like this has progressed quickly. Patient was started on Donazepil by her last primary care provider. They continue to decline neurological evaluation. Hypertension treated with amlodipine 10 mg daily. She restarted it after her last visit, and her blood pressure is normal today. History of breast cancer-followed by [facility] breast surgery. She has mammograms annually. She had left breast cancer some 15 years ago treated with surgery and radiation. She had right breast cancer 2 years ago which was treated surgically. Hypothyroidism treated with levothyroxine 100 mcg daily. We discussed fatigue previously, and sleep study was ordered. Endorses non restorative sleep. She snores. She did not have it done, but they are okay with me reordering it. She has a nonhealing skin lesion on the center of her chest for the past few months. It forms a scab and she picks at it. She applied antibiotic ointment. She has an appointment scheduled with Dermatology for evaluation. ROS: Constitutional: No unexplained weight loss, fever, chills or night sweats. Respiratory: No shortness of breath, cough or sputum production. Cardiovascular: No chest pain, chest pressure or chest discomfort. No palpitations or pedal edema. Gastrointestinal: No anorexia, nausea, vomiting or diarrhea. No abdominal pain or blood in stool. Hematologic/Lymphatics: No bleeding or bruising. Denies swollen glands. Skin: See HPI. Psychiatric: No depression or anxiety. No SI/HI. Physical exam: Constitutional: Alert, in no distress. Neck: Supple, Full range of motion. No lymphadenopathy. Respiratory: Clear to auscultation. Cardiovascular: S1 S2 regular. No murmurs. Abdomen: Soft, nontender, no palpable masses Extremities: Warm and well perfused. No clubbing, cyanosis or edema. Trace bilateral lower extremity edema. Psychiatric: Normal mood and affect Skin: 3 mm raised, erythematous asymmetric lesion on the center of the chest [facility] Medical History (Updated 01/04/25 @ 10:36 by RAMIRO Aponte) Non-restorative sleep Unsteady gait Risk for falls Abnormal CBC Skin neoplasm Fall Skin lesion WBC decreased History of breast cancer Cognitive decline Obesity, class 1 Fatigue Snoring Daytime somnolence At risk for nutrition deficiency Essential hypertension History of right breast cancer History of left breast cancer Hypothyroid Surgical History History of lumpectomy of left breast History of lumpectomy of right breast History of left knee replacement Social History (Updated 01/04/25 @ 10:18 by Britney Uribe MA) Housing: House Alcohol intake: current Patient Tobacco Use Status: Never used Tobacco e-Cigarette/Vaping Use: Never Used Second Hand Smoke Exposure: No service: No Current occupational status: unemployed Current occupational exposures/hazards: No Cognitive needs: No Hearing needs: Yes Vision needs: Yes Questionnaire Thrive Questionnaire Date Thrive assessed: 09/10/24 LUIS ENRIQUE-7 AMB Questionnaire LUIS ENRIQUE-7 Date LUIS ENRIQUE - 7 assessed: 09/10/24 Source: Developed by Drs. Craig Brooks, Dorothy Ohara, Chris Lucas and colleagues, with an educational mark from [employer]. Physical exam (Primary Care) Vital Signs: Last Vital Signs Temp 98.6 F 01/04/25 10:18 Pulse 65 01/04/25 10:18 Resp 16 01/04/25 10:18 BP 116/68 01/04/25 10:18 Pulse Ox 96 01/04/25 10:18 Oxygen Delivery Method Room Air 01/04/25 10:18 BMI result Body Mass Index 31.2 Tobacco/Smoking Status: Tobacco use Status Tobacco use date assessed 01/04/25 01/04/25 10:24 Patient Tobacco Use Status Never used Tobacco 01/04/25 10:18 e-Cigarette/Vaping Use Never Used 01/04/25 10:18 Thrive Assessment: Date of Thrive Assessment Date Thrive assessed 09/10/24 01/04/25 10:15 Coding Level of Care Code Est Pt Level 4 (24627) Complex EM visit Add On G2211 Diagnoses Skin lesion L98.9 History of breast cancer Z85.3 Fatigue R53.83 Cognitive decline R41.89 Essential hypertension I10 Hypothyroid E03.9 Abnormal CBC R79.89 Assessment & Plan Assessment & Plan (1) Skin lesion: Code(s): L98.9 - Disorder of the skin and subcutaneous tissue, unspecified Category: Medical Plan: Dermatology appointment is scheduled for evaluation. (2) History of breast cancer: Code(s): Z85.3 - Personal history of malignant neoplasm of breast Category: Medical Plan: Patient is followed by the breast surgeon at [facility] and has mammograms done there. (3) Fatigue: Code(s): R53.83 - Other fatigue Category: Medical Plan: Patient has daytime somnolence, fatigue, snoring, obesity and hypertension. I am concerned she may have undiagnosed sleep apnea and this is also relevant related to her cognitive decline. I reviewed the importance of the home sleep study. She agreed to have it done. Reordered. (4) Cognitive decline: Code(s): R41.89 - Other symptoms and signs involving cognitive functions and awareness Category: Medical Plan: Recommended neuroimaging and referral to neuropsych evaluation and Neurology. They declined at this time. They would like to continue on the donazepil. current dose for now. Monitoring for worsening symptoms. (5) Essential hypertension: Code(s): I10 - Essential (primary) hypertension Category: Medical Plan: Well-controlled. Continue current regimen. (6) Hypothyroid: Code(s): E03.9 - Hypothyroidism, unspecified Category: Medical Plan: Continue levothyroxine (7) Abnormal CBC: Code(s): R79.89 - Other specified abnormal findings of blood chemistry Category: Medical Plan: She will have lab work done today. Orders: Orders RT home sleep study 01/04/25 G47.8 - Other sleep disorders, R40.0 - Somnolence
[2025-01-04 10:18] VITALS: BP 116/68; PULSE 65; RESP 16; TEMP 37; O2SAT 96; BMI 31.2
== END 2025-01-04 10:44 | disposition home or self-care (01) ==
LOC: HO.HMCFM 10:09
PROVIDERS: PCP Physician Assistant Medical; Visit Provider Physician Assistant Medical
DX: L98.9 Disorder of the skin and subcutaneous tissue, unspecified (principal); Z85.3 Personal history of malignant neoplasm of breast; R53.83 Other fatigue; R41.89 Other symptoms and signs involving cognitive functions and awareness; I10 Essential (primary) hypertension; E03.9 Hypothyroidism, unspecified; R79.89 Other specified abnormal findings of blood chemistry

== ENCOUNTER → 2025-01-04 10:09 | Outpatient (BNVA) | payer MEDICARE, SELFPAY | PROVIDERS: PCP Physician Assistant Medical; Visit Provider Physician Assistant Medical | DX: L98.9 Disorder of the skin and subcutaneous tissue, unspecified (principal); R53.83 Other fatigue; R41.89 Other symptoms and signs involving cognitive functions and awareness; I10 Essential (primary) hypertension; E03.9 Hypothyroidism, unspecified; R79.89 Other specified abnormal findings of blood chemistry; Z85.3 Personal history of malignant neoplasm of breast; Z79.899 Other long term (current) drug therapy | CPT/HCPCS: 99212 ==

== ENCOUNTER 2025-01-04 11:24 | Outpatient (REF) | payer MEDICARE, SELFPAY ==
[2025-01-04 15:28] LABS: MANUAL DIFF FLAG NO
[2025-01-04 15:40] LABS: Hematocrit 41.8 % (37.0-47.0); Hemoglobin 14.2 g/dl (12.0-16.0); Imm Gran Abs Auto 0.01 X10*3/uL (0.00-0.03); Imm Gran Pct Auto 0.3 % (0.0-0.4); Lymphocytes Absolute Auto 0.9 X10*3/uL (1.2-4.9); Mean Corpuscular HGB Conc 34.0 g/dl (31.0-35.0); Mean Corpuscular Hemoglobin 31.4 pg (27.0-33.0); Mean Corpuscular Volume 92.5 fL (80.0-98.0); NRBC Abs Auto 0.000 X10*3/uL (0.0-0.012); NRBC Pct Auto 0.0 /100WBC (0.0-0.2); Platelet Count 174 X10*3/uL (160-400); Red Blood Count 4.52 X10*6/uL (4.20-5.50); White Blood Count 3.5 X10*3/uL (4.8-10.8)
[2025-01-04 16:21] LABS: Folate 12.4 ng/mL (> or = 4.0); Iron 72 mcg/dL (30-160); Percent Iron Saturation 27 % (15-50); Total Iron Binding Capacity 263 mcg/dL (228-428); Unsaturated Iron Binding 191 ug/dL; Vitamin B12 1298 pg/mL (200-900)
[2025-01-04 16:35] LABS: Ferritin 106 ng/mL (10-250)
== END 2025-01-04 11:25 | disposition home or self-care (01) ==
LOC: HO.WFDLDS 11:24
PROVIDERS: Visit Provider Physician Assistant Medical
DX: D72.819 Decreased white blood cell count, unspecified (principal); D64.9 Anemia, unspecified; R79.89 Other specified abnormal findings of blood chemistry
CPT/HCPCS: 82607; 82728; 82746; 83540; 85025

== ENCOUNTER → 2025-02-12 09:45 | Outpatient (BNV) | payer MEDICARE, SELFPAY | PROVIDERS: PCP Physician Assistant Medical; Referring Provider Physician Assistant Medical; Visit Provider Internal Medicine | DX: D72.819 Decreased white blood cell count, unspecified (principal); Z85.3 Personal history of malignant neoplasm of breast | CPT/HCPCS: 99204; G2211 ==

== ENCOUNTER 2025-04-15 13:26 | Outpatient (AMB) | payer MEDICARE, SELFPAY ==
--- NOTE | 2025-04-15 13:38 | A.OFFPC_ITS ---
Vital Signs 04/15/25 13:40 Height 5 ft Weight 160 lb 8 oz BMI 31.3 BP 116/84 Blood Pressure Location Rt brachial Position Sitting Respiration 14 Pulse 68 Pulse Source Pulse Oximeter Pulse Oximetry (%) 97 Oxygen Delivery Method Room Air Intake Visit Reasons: follow up med review Intake Note: Follow up medication review. Mobile Product Manager Required: No Allergies No Known Allergies Allergy (Verified 04/15/25 13:39) Medication List - Last Reconciled 04/15/25 by RAMIRO Aponte amlodipine 10 mg PO DAILY cholecalciferol (vitamin D3) 25 mcg PO DAILY donepezil 5 mg PO DAILY levothyroxine 75 mcg PO QAM loratadine-pseudoephedrine 10-240 mg ER (AllerClear D-24hr) 1 tab PO DAILY uojfzbcv-fqi-zuib-FA-vit K-lut 8 mg iron-400 mcg-50 mcg (Centrum Silver Women) 1 tab PO DAILY vit C,M-Rr-iazxy-lutein-zeaxan 250-90-40-1 mg (PreserVision AREDS-2) 1 tab PO BID Tobacco use date assessed: 01/04/25 Dental Screening Dental Screen Date: 01/04/25 HPI HPI Comments History of Present Illness Details This is a 80-year-old female with a past medical history of cognitive decline, hypothyroidism, breast cancer, hypertension and hypothyroidism presenting for follow up. She is accompanied by her . This appointment was scheduled to review blood work, but she did not have it completed yet. She was seen in the emergency department on 11/25/2024 after a fall. ED workup included labs demonstrating red blood cell count 4.15 and mild leukopenia with white blood cell count of 4.3, mild thrombocytopenia with platelet count 158,000, creatinine 0.97, GFR 56. Normal hepatic function. She took courses of iron and b12. She saw hematology who recommended monitoring. I recommended physical therapy for gait strengthening and fall prevention, but she continues to decline it at this time. They have a cane at home though she does not use this. She has cognitive decline which we previously discussed-memory loss over the past 2 years. No longer drives. ADLs not impacted otherwise. They do not feel like this has progressed. Patient was started on Donazepil by her last primary care provider. They continue to decline neurological evaluation. Weight is stable. Hypertension treated with amlodipine 10 mg daily. History of breast cancer-followed by [facility] breast surgery. She has mammograms annually. She had left breast cancer some 15 years ago treated with surgery and radiation. She had right breast cancer 2 years ago which was treated surgically. Hypothyroidism treated with levothyroxine 75 mcg daily. Skin lesion on chest resolved with antibuiotic resolved. ROS: Constitutional: No unexplained weight loss, fever, chills or night sweats. Respiratory: No shortness of breath, cough or sputum production. Cardiovascular: No chest pain, chest pressure or chest discomfort. No palpitations or pedal edema. Gastrointestinal: No anorexia, nausea, vomiting or diarrhea. No abdominal pain or blood in stool. Hematologic/Lymphatics: No bleeding or bruising. Denies swollen glands. Skin: See HPI. Psychiatric: No depression or anxiety. No SI/HI. Physical exam: Constitutional: Alert, in no distress. Neck: Supple, Full range of motion. No lymphadenopathy. Respiratory: Clear to auscultation. Cardiovascular: S1 S2 regular. No murmurs. Abdomen: Soft, nontender, no palpable masses Extremities: Warm and well perfused. No clubbing, cyanosis or edema. Trace bilateral lower extremity edema. Psychiatric: Normal mood and affect Skin: previous chest lesion resolved [facility] Medical History (Updated 02/12/25 @ 11:06 by Chitra Lopez MD) Non-restorative sleep Unsteady gait Risk for falls Abnormal CBC Skin neoplasm Fall Skin lesion WBC decreased History of breast cancer Cognitive decline Obesity, class 1 Fatigue Snoring Daytime somnolence At risk for nutrition deficiency Essential hypertension History of right breast cancer History of left breast cancer Hypothyroid Surgical History (Updated 02/12/25 @ 11:06 by Chitra Lopez MD) History of lumpectomy of left breast History of lumpectomy of right breast History of left knee replacement Social History (Updated 02/12/25 @ 10:17 by Adela Weaver) Household Members: Spouse Housing: House Are you a primary manager intensive care unit to a significant other at home: No Do you presently have visiting nurse or other home services: No Alcohol intake: current Patient Tobacco Use Status: Never used Tobacco e-Cigarette/Vaping Use: Never Used Second Hand Smoke Exposure: No service: No Current occupational status: retired Current occupational exposures/hazards: No Cognitive needs: No Hearing needs: Yes Vision needs: Yes Questionnaire PHQ-9 Over the last 2 weeks, how often have you been bothered by any of the following problems? 1. Little interest or pleasure in doing things: nearly every day 2. Feeling down, depressed, or hopeless: not at all Source: Developed by Drs. Craig Brooks, Dorothy Ohara, Chris Lucas and colleagues, with an educational mark from [employer]. Thrive Questionnaire Date Thrive assessed: 09/10/24 LUIS ENRIQUE-7 AMB Questionnaire LUIS ENRIQUE-7 Date LUIS ENRIQUE - 7 assessed: 09/10/24 Source: Developed by Drs. Craig Brooks, Dorothy Ohara, Chris Lucas and colleagues, with an educational mark from [employer]. Physical exam (Primary Care) Vital Signs: Last Vital Signs Pulse 68 04/15/25 13:40 Resp 14 04/15/25 13:40 BP 116/84 04/15/25 13:40 Pulse Ox 97 04/15/25 13:40 Oxygen Delivery Method Room Air 04/15/25 13:40 BMI result Body Mass Index 31.3 Tobacco/Smoking Status: Tobacco use Status Tobacco use date assessed 01/04/25 04/15/25 13:40 Patient Tobacco Use Status Never used Tobacco 04/15/25 13:40 e-Cigarette/Vaping Use Never Used 04/15/25 13:40 Thrive Assessment: Date of Thrive Assessment Date Thrive assessed 09/10/24 04/15/25 13:40 Coding Level of Care Code Est Pt Level 4 (91871) Complex EM visit Add On G2211 Diagnoses Skin lesion L98.9 History of breast cancer Z85.3 Cognitive decline R41.89 Essential hypertension I10 Hypothyroid E03.9 Abnormal CBC R79.89 Assessment & Plan Assessment & Plan (1) Skin lesion: Code(s): L98.9 - Disorder of the skin and subcutaneous tissue, unspecified Category: Medical Plan: Resolved (2) History of breast cancer: Code(s): Z85.3 - Personal history of malignant neoplasm of breast Category: Medical Plan: Patient is followed by the breast surgeon at [facility] and has mammograms done there. (3) Cognitive decline: Code(s): R41.89 - Other symptoms and signs involving cognitive functions and awareness Category: Medical Plan: Recommended neuroimaging and referral to neuropsych evaluation and Neurology. They declined at this time. They would like to continue on the donazepil. current dose for now. Monitoring for worsening symptoms. (4) Essential hypertension: Code(s): I10 - Essential (primary) hypertension Category: Medical Plan: Continue current regimen. (5) Hypothyroid: Code(s): E03.9 - Hypothyroidism, unspecified Category: Medical Plan: Continue levothyroxine (6) Abnormal CBC: Code(s): R79.89 - Other specified abnormal findings of blood chemistry Category: Medical Plan: She will have lab work done today. Seen be hematology. Monitor. Plan Follow up in 6 months. Orders: Orders IRON PROFILE Today D64.9 - Anemia, unspecified, D72.819 - Decreased white blood cell count, unspecified, E03.9 - Hypothyroidism, unspecified, I10 - Essential (primary) hypertension, Z85.3 - Personal history of malignant neoplasm of breast Vitamin B12 Today D72.819 - Decreased white blood cell count, unspecified, E03.9 - Hypothyroidism, unspecified, I10 - Essential (primary) hypertension, Z85.3 - Personal history of malignant neoplasm of breast, Z91.89 - Other specified personal risk factors, not elsewhere classified Comprehensive Met. Panel Today D72.819 - Decreased white blood cell count, unspecified, E03.9 - Hypothyroidism, unspecified, I10 - Essential (primary) hypertension, Z85.3 - Personal history of malignant neoplasm of breast Complete Blood Count Auto Diff Today D72.819 - Decreased white blood cell count, unspecified, E03.9 - Hypothyroidism, unspecified, I10 - Essential (primary) hypertension, Z85.3 - Personal history of malignant neoplasm of breast Ferritin Today D64.9 - Anemia, unspecified, D72.819 - Decreased white blood cell count, unspecified, E03.9 - Hypothyroidism, unspecified, I10 - Essential (primary) hypertension, Z85.3 - Personal history of malignant neoplasm of breast TSH reflex Free T4 Today D72.819 - Decreased white blood cell count, unspecified, E03.9 - Hypothyroidism, unspecified, I10 - Essential (primary) hypertension, Z85.3 - Personal history of malignant neoplasm of breast
[2025-04-15 13:40] VITALS: BP 116/84; PULSE 68; RESP 14; O2SAT 97; BMI 31.3
--- OUTSIDE RECORDS SUMMARY | 2025-04-15 17:00 | XMS_ITS ---
Author Name [facility] Organization Unknown Care Team Organization Name Specialty Phone Email Start Date End Da te [facility] Termed, PROVIDER Primary Care 05/01/202201/22
== END 2025-04-15 14:05 | disposition home or self-care (01) ==
LOC: HO.HMCFM 13:27
PROVIDERS: PCP Physician Assistant Medical; Visit Provider Physician Assistant Medical
DX: L98.9 Disorder of the skin and subcutaneous tissue, unspecified (principal); Z85.3 Personal history of malignant neoplasm of breast; R41.89 Other symptoms and signs involving cognitive functions and awareness; I10 Essential (primary) hypertension; E03.9 Hypothyroidism, unspecified; R79.89 Other specified abnormal findings of blood chemistry

== ENCOUNTER 2025-04-15 13:26 | Outpatient (REF) | payer MEDICARE, SELFPAY ==
[2025-04-15 17:56] LABS: MANUAL DIFF FLAG NO
[2025-04-15 18:03] LABS: Hematocrit 40.0 % (37.0-47.0); Hemoglobin 13.0 g/dl (12.0-16.0); Imm Gran Abs Auto 0.02 X10*3/uL (0.00-0.03); Imm Gran Pct Auto 0.4 % (0.0-0.4); Lymphocytes Absolute Auto 1.0 X10*3/uL (1.2-4.9); Mean Corpuscular HGB Conc 32.5 g/dl (31.0-35.0); Mean Corpuscular Hemoglobin 30.2 pg (27.0-33.0); Mean Corpuscular Volume 92.8 fL (80.0-98.0); NRBC Abs Auto 0.000 X10*3/uL (0.0-0.012); NRBC Pct Auto 0.0 /100WBC (0.0-0.2); Platelet Count 204 X10*3/uL (160-400); Red Blood Count 4.31 X10*6/uL (4.20-5.50); White Blood Count 5.6 X10*3/uL (4.8-10.8)
[2025-04-15 18:34] LABS: Alanine Aminotransferase 15 U/L (0-31); Albumin Level 3.9 g/dL (3.5-5.0); Alkaline Phosphatase 51 U/L (39-117); Anion Gap 13 (12-20); Aspartate Amino Transferase 23 U/L (5-31); Blood Urea Nitrogen 9 mg/dL (9-16); Calcium 9.2 mg/dL (8.4-10.2); Carbon Dioxide 25 mmol/L (22-29); Chloride 108 mmol/L (96-108); Estimated Glomerular Filt Rate > 60; Iron 36 mcg/dL (30-160); Percent Iron Saturation 19 % (15-50); Potassium 3.8 mmol/L (3.3-5.1); Sodium 142 mmol/L (135-145); Total Iron Binding Capacity 189 mcg/dL (228-428); Total Protein 7.0 g/dL (6.5-8.0); Unsaturated Iron Binding 153 ug/dL
[2025-04-15 18:40] LABS: Vitamin B12 1287 pg/mL (200-900)
[2025-04-15 18:42] LABS: Ferritin 268 ng/mL (10-250)
== END 2025-04-15 13:27 | disposition home or self-care (01) ==
LOC: HO.WFDLDS 13:26
PROVIDERS: PCP Physician Assistant Medical; Visit Provider Physician Assistant Medical
DX: I10 Essential (primary) hypertension (principal); D64.9 Anemia, unspecified; D72.819 Decreased white blood cell count, unspecified; E03.9 Hypothyroidism, unspecified; L98.9 Disorder of the skin and subcutaneous tissue, unspecified; R41.89 Other symptoms and signs involving cognitive functions and awareness; R79.89 Other specified abnormal findings of blood chemistry; Z85.3 Personal history of malignant neoplasm of breast; Z79.899 Other long term (current) drug therapy; Z91.89 Other specified personal risk factors, not elsewhere classified
CPT/HCPCS: 36415; 80053; 82607; 82728; 83540; 84443; 85025; 99212

== ENCOUNTER 2025-05-31 11:37 | Outpatient (AMB) | payer MEDICARE, SELFPAY ==
--- NOTE | 2025-05-31 11:44 | A.OFFPC_ITS ---
Vital Signs 05/31/25 11:49 Height 5 ft Weight 152 lb BMI 29.7 BP 122/82 Blood Pressure Location Rt brachial Position Sitting Respiration 15 Pulse 68 Pulse Source Pulse Oximeter Temp 97.4 F Temp Source Temporal Artery Scan Pulse Oximetry (%) 97 Oxygen Delivery Method Room Air Intake Visit Reasons: Fatigue evaluation Intake Note: Yusra Shah presents in the office today for fatigue evaluation. Aids Social Worker Required: No Is last menstrual period known: No Patient : No Allergies No Known Allergies Allergy (Verified 05/31/25 11:47) Tobacco use date assessed: 05/31/25 Dental Screening Dental Screen Date: 01/04/25 Did you have a dental visit in the last 12 months?: No Did you have a dental problem in the last 6 months where you did not have access to dental care?: No Was dental information given to patient?: Patient declined HPI HPI Comments History of Present Illness Details This is a 80-year-old female with a past medical history of cognitive decline, hypothyroidism, breast cancer, hypertension and hypothyroidism presenting for follow up. She is accompanied by her and her son. The appointment was scheduled after I saw her , and he brought up ongoing concerns about her fatigue. He reports that her amlodipine and benazepril were discontinued a week ago because they misplaced them. Since stopping these medications he reports that her fatigue is much better. She endorses a better quality of life. She has more energy. Her blood pressure is 122/82 today despite stopping amlodipine. She will still take a nap during the day, but she has not dozing off, and feels better. They make sure to go out every day even if it is a short trip to the store. Denies snoring, apneic episodes, sleep talking or walking. She is eating 2 meals per day. She has a good appetite. She does not drive. Otherwise ADLs or not impacted. Benazepril was initiated by her last primary care provider due to cognitive decline. They have repeatedly deferred neurological evaluation and MRI. She has a head CT after a fall this year which did not show any intracranial masses. They report a cough for the past week which is improving after treatment with Robitussin. It is nonproductive. No fevers, chills, chest pain, wheezing or shortness of breath. Patient also will wake up with a sore spot on the back of her head intermittently for the past 8 months. She will notice this in the morning after sleeping, and it improves when she takes an aspirin or has been massages the area. Hypothyroidism-taking levothyroxine. TSH normal in March. ROS: Constitutional: No unexplained weight loss, fever, chills or night sweats. Eyes: No vision changes or eye pain Respiratory: No shortness of breath, cough or sputum production. Cardiovascular: No chest pain, chest pressure or chest discomfort. No palpitations or pedal edema. Gastrointestinal: No anorexia, nausea, vomiting or diarrhea. No abdominal pain or blood in stool. Genitourinary: No dysuria, hematuria, urinary frequency. Neurologic: No headache, dizziness, syncope Hematologic/Lymphatics: No bleeding or bruising. No painful lymph nodes. Skin: No rash Psychiatric: Denies depression and anxiety Physical exam: Constitutional: Alert, in no distress. Head: Normocephalic. No palpable masses or deformities. Patient indicates that pain is along the occipital protuberance, but it is nontender today. Eyes: Pupils are equal, round and reactive to light. Extraocular muscles intact. Ear, Nose and Throat: Canals clear. TMs normal. Normal nasal mucosa. No nasal discharge. No oral lesions. Neck: Supple, Full range of motion. No lymphadenopathy. No palpable thyroid enlargement or masses. Respiratory: Clear to auscultation. Cardiovascular: S1 S2 regular. No murmurs. Gastrointestinal: Abdomen soft, non-tender, non-distended. Normal bowel sounds. No palpable masses. Genitourinary: No costovertebral angle tenderness. Neurologic: No focal neurological deficits. Extremities: Warm and well perfused. No clubbing or cyanosis. Trace bilateral pedal edema. Psychiatric: Normal mood and affect [facility] Medical History (Updated 06/01/25 @ 10:45 by RAMIRO Aponte) Head pain Cough Non-restorative sleep Unsteady gait Risk for falls Abnormal CBC Skin neoplasm Fall Skin lesion WBC decreased History of breast cancer Cognitive decline Obesity, class 1 Fatigue Snoring Daytime somnolence At risk for nutrition deficiency Essential hypertension History of right breast cancer History of left breast cancer Hypothyroid Surgical History (Updated 02/12/25 @ 11:06 by Chitra Lopez MD) History of lumpectomy of left breast History of lumpectomy of right breast History of left knee replacement Social History (Updated 05/31/25 @ 11:49 by Britney Uribe [facility]) Household Members: Spouse Housing: House Are you a primary rn coronary care unit to a significant other at home: No Do you presently have visiting nurse or other home services: No Alcohol intake: current Patient Tobacco Use Status: Never used Tobacco e-Cigarette/Vaping Use: Never Used Second Hand Smoke Exposure: No service: No Current occupational status: retired Current occupational exposures/hazards: No Cognitive needs: No Hearing needs: Yes Vision needs: Yes Questionnaire PHQ-9 Over the last 2 weeks, how often have you been bothered by any of the following problems? 3. Trouble falling or staying asleep, or sleeping too much: nearly every day 4. Feeling tired or having little energy: nearly every day 5. Poor appetite or overeating: several days 6. Feeling bad about yourself - or that you are a failure or have let yourself or your family down: several days 7. Trouble concentrating on things, such as reading the newspaper or watching television: nearly every day 8. Moving or speaking so slowly that other people could have noticed. Or the opposite - being so fidgety or restless that you have been moving around a lot more than usual: several days 9. Thoughts that you would be better off or of hurting yourself in some way: not at all Source: Developed by Drs. Craig Brooks, Dorothy Ohara, Chris Lucas and colleagues, with an educational mark from [employer]. Thrive Questionnaire Date Thrive assessed: 09/10/24 I am a: Parent/Caregiver What is your living situation today?: I have a steady place to live Within the past 12 months, did the food you bought not last and you didn't have the money to get more?: Never true Within the past 12 months, did you worry whether your food would run out before you got money to buy more?: Never true Do you have trouble paying for medicines?: No Do you have trouble getting transportation to medical appointments?: No Do you have trouble paying your heating and electricity bill?: No Do you have trouble taking care of your child, family member or friend?: No Do you have trouble with day-to-day activities such as bathing, preparing meals, shopping, managing finances, etc.?: Yes Are you currently unemployed and looking for a job?: No Are you interested in more education?: No Please select the resources that you would like help with: None Currently or been in a relationship where the following occur: No concerns reported THRIVE Score: 0 AUDIT C Alcohol Use Questionnaire (AUDIT-C) 1. How often do you have a drink containing alcohol?: 2-4 times a month 2. How many drinks containing alcohol do you have on a typical day when you are drinking?: 1 or 2 3. How often do you have six or more drinks on one occasion?: Less than monthly Total Score: 3 LUIS ENRIQUE-7 AMB Questionnaire LUIS ENRIQUE-7 Date LUIS ENRIQUE - 7 assessed: 09/10/24 Feeling nervous, anxious, or on edge: 1 = Several days Not being able to stop or control worryin = More than half the days Worrying too much about different things: 2 = More than half the days Trouble relaxin = Not at all Being so restless that it is hard to sit still: 0 = Not at all Becoming easily annoyed or irritable: 0 = Not at all Feeling afraid as if something awful might happen: 0 = Not at all Total LUIS ENRIQUE-7 score (0-4 normal; 5-9 mild; 10-14 moderate; 15-21 severe): 5 Source: Developed by Drs. Craig Brooks, Dorothy Ohara, Chris Lucas and colleagues, with an educational mark from [employer]. Physical exam (Primary Care) Vital Signs: Last Vital Signs Temp 97.4 F 05/31/25 11:49 Pulse 68 05/31/25 11:49 Resp 15 05/31/25 11:49 BP 122/82 05/31/25 11:49 Pulse Ox 97 05/31/25 11:49 Oxygen Delivery Method Room Air 05/31/25 11:49 BMI result Body Mass Index 29.7 Tobacco/Smoking Status: Tobacco use Status Tobacco use date assessed 05/31/25 05/31/25 11:52 Patient Tobacco Use Status Never used Tobacco 05/31/25 11:52 e-Cigarette/Vaping Use Never Used 05/31/25 11:52 Thrive Assessment: Date of Thrive Assessment Date Thrive assessed 09/10/24 05/31/25 11:52 Currently or been in a relationship where the following occur: No concerns reported Results Reviewed Results Reviewed: Laboratory Tests 04/15/25 14:08 WBC 5.6 RBC 4.31 Hgb 13.0 Hct 40.0 Plt Count 204 Sodium 142 Potassium 3.8 Chloride 108 Creatinine 0.87 Estimated GFR > 60 Iron 36 TIBC 189 L % Saturation 19 Unsat Iron Binding 153 Ferritin 268 H AST 23 ALT 15 Vitamin B12 1287 H TSH 1.02 MMSE score 05/2306/01/25. 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 We can continue to monitor this. I provided them with a prescription for a blood pressure cuff. We will set up a follow up appointment in 2 months. They were instructed to call the office if blood pressures are 140/90 or higher. 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 Continue levothyroxine. (3) Cognitive decline: Code(s): R41.89 - Other symptoms and signs involving cognitive functions and awareness Category: Medical Plan: The patient stopped benazepril after it was misplaced a week ago, and she does not wish to restart it. We discussed there are alternative medications, but she is not interested in it at this time. They continued to decline referral to Neurology, MRI or further evaluation for symptoms. She does not want to attend appointments or take more medications, and she wishes to focus on the quality of her life. MMSE score only 05/23 today. Will recheck at follow up in 8 weeks off donezapil. (4) Fatigue: Code(s): R53.83 - Other fatigue Category: Medical Plan: This may have been due to medication side effects since stopping amlodipine and benazepril she is feeling much better. Recent labs reviewed with the patient. She will monitor for recurrent fatigue. (5) Cough: Code(s): R05.9 - Cough, unspecified Category: Medical Plan: Lungs are clear. Vitals are normal. This is resolving. Continue Robitussin and contact the office for worsening symptoms. (6) Head pain: Code(s): R51.9 - Headache, unspecified Category: Medical Plan: No findings on head CT earlier this year to explain this. It is soreness of the exit protuberance which may be due to position when sleeping. I recommended trying a gel orthopedic pillow. Plan Follow up in 8 weeks. Medications: New blood pressure monitor As directed 1 ea 0RF R03.0 - Elevated blood-pressure reading, without diagnosis of hypertension
[2025-05-31 11:49] VITALS: BP 122/82; PULSE 68; RESP 15; TEMP 36.3; O2SAT 97; BMI 29.7
== END 2025-05-31 12:44 | disposition home or self-care (01) ==
LOC: HO.HMCFM 11:38
PROVIDERS: PCP Physician Assistant Medical; Visit Provider Physician Assistant Medical
DX: I10 Essential (primary) hypertension (principal); E06.3 Autoimmune thyroiditis; R41.89 Other symptoms and signs involving cognitive functions and awareness; R53.83 Other fatigue; R05.9 Cough, unspecified; R51.9 Headache, unspecified

== ENCOUNTER → 2025-05-31 11:37 | Outpatient (BNVA) | payer MEDICARE, SELFPAY | PROVIDERS: PCP Physician Assistant Medical; Visit Provider Physician Assistant Medical | DX: I10 Essential (primary) hypertension (principal); E06.3 Autoimmune thyroiditis; R41.89 Other symptoms and signs involving cognitive functions and awareness; R53.83 Other fatigue; R05.9 Cough, unspecified; R51.9 Headache, unspecified | CPT/HCPCS: 99212 ==